=== PATIENT | female | born 1960 | race Caucasian/White ===

== ENCOUNTER → 2016-09-14 | Outpatient (CLI) | payer OTHER ==
--- NOTE | 2016-09-14 09:50 | MA ---
Screening Digital Mammogram With iCAD Analysis Reason for Examination: Routine screening. Her maternal grandmother was diagnosed with breast cancer in her 60s. Breast parenchymal density: Type B; Scattered fibroglandular densities. Technique: Four views of each breast are obtained including CC and oblique lateral Shalini (implant di splaced) and non-Shalini (implant not displaced) views. Images were reviewed using the iCAD computer a ided detection system. Comparison: November 2013, November 2012, November 2011, October 2010, August 2009, June 2008, June 7. Findings: Breast implants are in place bilaterally. iCAD is reviewed. No suspicious areas are identif ied. There has been no significant change in the appearance of either breast. Breast implants diminis h the sensitivity of mammography. Impression: Negative mammogram. BI-RADS 1. Recommendation: Routine screening is recommended in one year as long as physical examination is negat kunal. [facility] will send a result letter to the patient. Negative mammography should not preclude additional workup of a clinically suspicious finding. The patient's information is entered into a reminder system with a target due date for her next mammo gram.
== END ==
LOC: BRMIMAGING 08:05
PROVIDERS: ATTEND Physician Assistant Medical
DX: Z12.31 Encounter for screening mammogram for malignant neoplasm of breast (principal); Z80.3 Family history of malignant neoplasm of breast
CPT/HCPCS: G0202

== ENCOUNTER → 2017-09-22 | Outpatient (CLI) | payer OTHER | LOC: BRMIMAGING 15:10 | PROVIDERS: ATTEND Physician Assistant Medical | DX: Z12.31 Encounter for screening mammogram for malignant neoplasm of breast (principal) ==

== ENCOUNTER → 2018-10-11 | Outpatient (CLI) | payer OTHER | LOC: BRMIMAGING 13:10 | PROVIDERS: ATTEND Physician Assistant Medical | DX: Z12.31 Encounter for screening mammogram for malignant neoplasm of breast (principal); Z80.3 Family history of malignant neoplasm of breast ==